=== PATIENT | female | born 2000 | race Caucasian/White ===

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

== ENCOUNTER 2021-10-26 21:43 | Emergency (ER) | payer BC ==
[~2021-10-26] VITALS: Ht 167.6 cm; Wt 102.1 kg
[2021-10-26 22:08] VITALS: BP 123/74
--- NOTE | 2021-10-26 23:35 | NUR ---
Dr. Chen examining patient.
--- NOTE | 2021-10-26 23:52 | NUR ---
Patient ambulated to bed 4.
[2021-10-27] MEDS ORDERED: CEPH-588 PO (00:12)
[2021-10-27 01:05] VITALS: BP 118/78
--- NOTE | 2021-10-27 01:05 | NUR ---
Patient discharged with v/s stable. Written and verbal after care instructions given and explained. Patient alert, oriented and verbalized understanding of instructions. Ambulatory with steady gait. All questions addressed prior to discharge. ID band removed. Patient advised to follow up with PMD. Rx of KEFLEX 500MG given. Patient educated on indication of medication including possible reaction and side effects. Opportunity to ask questions provided and answered.
== END 2021-10-27 01:05 | disposition home or self-care (01) ==
LOC: MED 21:43
DX: N39.0 Urinary tract infection, site not specified (principal)
CPT/HCPCS: 81002; 81025; 99283